=== PATIENT | male | born 1960 | race African-American/Black ===

== ENCOUNTER 2016-12-23 09:11 | Emergency (ER) | payer SELFPAY ==
[~2016-12-23] VITALS: Ht 182.9 cm; Wt 125.0 kg
[2016-12-23 09:15] VITALS: BP 135/77; PULSE 65; RESP 20; TEMP 98; O2SAT 99
--- NOTE | 2016-12-23 09:46 | PD ---
HPI Chief Complaint: Medication Refill Request Time Seen by Provider: 09:46 Travel History International Travel<30 days: No Contact w/Intl Traveler<30days: No Traveled to known affect area: No History of Present Illness HPI 56-year-old male presents to the emergency department requesting refill on his Lortab for chronic back pain that he's been experiencing for the last 3-4 years. Says his pain is midline and this is his normal back pain. Denies new or recent injury. Uses a cane for support and this is also normal for him. Denies encopresis, incontinence, saddle anesthesias. Denies IV drug use, cancer. Denies fever, vomiting, abdominal pain. Denies paresthesias, loss of sensation, decreased range of motion, decreased strength to bilateral lower extremities. He says he has pain that radiates down his left buttock and back of left leg and this is also unchanged. Takes Xarelto for atrial fibrillation. He has no other medical complaints. No known allergies. No other modifying factors or associated signs and symptoms. Allergies-Medications (Allergen,Severity, Reaction): Coded Allergies: No Known Allergies (Unverified , 12/23/16) Review of Systems Except as stated in HPI: all other systems reviewed are Neg Physical Exam Narrative GENERAL: Well-nourished, well-developed male patient, in no acute distress; afebrile, nontoxic-appearing SKIN: Warm and dry. HEAD: Atraumatic. Normocephalic. EYES: Pupils equal and round. No scleral icterus. No injection or drainage. ENT: Mucosa pink and moist. Airway patent. NECK: Trachea midline. CARDIOVASCULAR: Regular rate. RESPIRATORY: No accessory muscle use. GASTROINTESTINAL: Rounded. MUSCULOSKELETAL: Bilateral lower extremities supple and non-tense with 2+ pedal pulses and sensory intact; with full range of motion and 5/5 strength. 2 + DTRs bilaterally. Active dorsiflexion and extension of bilateral feet. Ambulatory in room with normal gait with assistance with a cane. Sitting up in bed at 90. No obvious deformities. No clubbing. No cyanosis. No edema. BACK: Midline point tenderness on palpation of the lumbar spine. Tenderness on palpation of bilateral lumbar paraspinal and iliosacral areas. No obvious deformities. NEUROLOGICAL: Awake and alert. Oriented 3. No obvious cranial nerve deficits. Motor grossly within normal limits. Normal speech. Moves all extremities. 5/5 strength to all extremities. Sensory intact. PSYCHIATRIC: Appropriate mood and affect; insight and judgment normal. Data Data Last Documented VS Vital Signs Date Time Temp Pulse Resp B/P Pulse Ox O2 Delivery O2 Flow Rate FiO2 12/23/16 09:15 98.0 65 20 135/77 99 Room Air MDM Medical Screen Exam Complete: Yes Emergency Medical Condition: No Differential Diagnosis Medication refill, narcotic seeking, medical clearance Narrative Course 56-year-old male requesting refill on his Lortab for chronic back pain. Denies new or recent injury. Denies IV drug use, cancer. Denies encopresis, incontinence, saddle anesthesias. Patient is ambulatory in the room with a normal gait with assistance with his cane. He does have midline point tenderness on palpation of the lumbar spine, and states that this is his normal back pain and is unchanged. I offered the patient a nonnarcotic and a muscle relaxer and he declined. Patient states he has an appointment with his primary care provider at beginning of January. Vital signs are stable and the patient is stable for outpatient follow-up and treatment. The patient has no urgent or emergent medical complaints. There is no emergent or urgent medical need at this time. I instructed the patient to follow up with their primary care provider. A medical screening exam was performed: At the time of evaluation the presenting medical condition was determined not to be of an emergent nature. The patient was given the option of receiving additional care, but declined. Patient was given options for additional community resources from which to obtain care. The Patient Has Been advised to seek medical attention for their presenting complaint. The patient has been advised to return to the ER at any time if an emergent condition develops. Primary Impression: Encounter for medical screening examination Condition: Stable Syeda Ghosh Dec 23, 2016 09:46
== END 2016-12-23 10:03 | disposition left against medical advice (07) ==
LOC: NEPK 09:11
DX: M79.605 Pain in left leg (principal); I48.91 Unspecified atrial fibrillation; Z79.01 Long term (current) use of anticoagulants
CPT/HCPCS: 99281

== ENCOUNTER 2017-03-30 19:54 | Emergency (ER) | payer OTHER ==
[~2017-03-30] VITALS: Ht 182.9 cm; Wt 125.0 kg
[2017-03-30 19:59] VITALS: BP 144/57; PULSE 107; RESP 16; TEMP 98; O2SAT 100
[2017-03-30] MEDS ORDERED: SODIUM CHLORIDE 0.9% FLUSH 10 ML FLUSH IVF PRN (21:30)
[2017-03-30] MEDS ORDERED: XARE20TA PO (22:04)
--- NOTE | 2017-03-30 22:05 | PD ---
HPI Chief Complaint: GI Complaint Time Seen by Provider: 21:29 Travel History International Travel<30 days: No Contact w/Intl Traveler<30days: No Traveled to known affect area: No History of Present Illness HPI 57 yo M with 1 week abdomen and chest pain sudden in onset. Today + dyspnea prompting ER visit. Modifying factors: none. Associated symptoms: decreased appetite. No fever. + Nausea. No vomiting. + Diarrhea x several episodes daily. + Coughing, non-productive. + Itchy sensation preceding coughing. Pt states, " It just feels sour." PFSH Past Medical History Hx Anticoagulant Therapy: Yes (XARELTO ) Cardiovascular Problems: Yes (HTN) Cerebrovascular Accident: Yes Past Surgical History Genitourinary Surgery: Yes (PROSTRATE REMOVED) Other Surgery: Yes Social History Alcohol Use: No Tobacco Use: No Substance Use: No Allergies-Medications (Allergen,Severity, Reaction): Coded Allergies: No Known Allergies (Unverified , 03/30/17) Reported Meds & Prescriptions Reported Meds & Active Scripts Active Reported Centrum Silver Men Tablet (Multivit-Min/FA/Lycopen/Lutein) 300 Mcg-600 Mcg-300 Mcg Tablet Cardizem CD 24 HR (Diltiazem CD 24 HR) 120 Mg Caper 120 Mg PO DAILY Metoprolol Tartrate 75 Mg Tab 75 Mg PO BID Digoxin 0.125 Mg Tab 0.125 Mg PO DAILY Zetia (Ezetimibe) 10 Mg Tab 10 Mg PO DAILY Hydrochlorothiazide 12.5 Mg Cap 12.5 Mg PO DAILY Zoloft (Sertraline HCl) 100 Mg Tab 100 Mg PO DAILY Alprazolam 1 Mg Tab 1 Mg PO Q12HR PRN Tramadol (Tramadol HCl) 50 Mg Tab 50 Mg PO Q6H PRN Metaxalone 800 Mg Tab 800 Mg PO DAILY Lortab (Hydrocodone-Acetaminophen) 5-325 Mg Tab 1 Tab PO Q4H PRN Xarelto (Rivaroxaban) 20 Mg Tab 20 Mg PO DAILY Review of Systems Except as stated in HPI: all other systems reviewed are Neg General / Constitutional: No: Fever Gastrointestinal: Positive: Nausea, Diarrhea, No: Vomiting, Abdominal Pain Physical Exam Narrative GENERAL: 57 yo M, WNWD, NAD SKIN: Warm and dry. HEAD: Atraumatic. Normocephalic. EYES: Pupils equal and round. No scleral icterus. No injection or drainage. ENT: No nasal bleeding or discharge. Mucous membranes pink and moist. NECK: Trachea midline. No JVD. CARDIOVASCULAR: Regular rate and rhythm. RESPIRATORY: No accessory muscle use. Clear to auscultation. Breath sounds equal bilaterally. GASTROINTESTINAL: Soft. TTP RUQ/epigastrium. MUSCULOSKELETAL: Extremities without clubbing, cyanosis, or edema. No obvious deformities. NEUROLOGICAL: Awake and alert. No obvious cranial nerve deficits. Motor grossly within normal limits. Five out of 5 muscle strength in the arms and legs. Normal speech. PSYCHIATRIC: Appropriate mood and affect; insight and judgment normal. Data Data Last Documented VS Vital Signs Date Time Temp Pulse Resp B/P (MAP) Pulse Ox O2 Delivery O2 Flow Rate FiO2 03/30/17 22:43 16 98 Room Air 03/30/17 19:59 98.0 107 VS reviewed Orders Orders Electrocardiogram (03/30/17 21:29) Complete Blood Count With Diff (03/30/17 21:29) Comprehensive Metabolic Panel (03/30/17 21:29) Magnesium (Mg) (03/30/17 21:29) Troponin I (03/30/17 21:29) Lipase (03/30/17 21:29) Iv Access Insert/Monitor (03/30/17 21:29) Oximetry (03/30/17 21:29) Sodium Chloride 0.9% Flush (Ns Flush) (03/30/17 21:30) Ct Abd/Pel W Iv Contrast(Rout) (03/30/17 22:05) Chest, Single Ap (03/30/17 ) Prothrombin Time / Inr (Pt) (03/30/17 22:17) Act Partial Throm Time (Ptt) (03/30/17 22:17) Iohexol 350 Inj (Omnipaque 350 Inj) (03/30/17 23:09) Ct Thorax/ Chest Wo Iv Contras (03/30/17 ) Ondansetron Inj (Zofran Inj) (03/31/17 00:30) Sodium Chlor 0.9% 1000 Ml Inj (Ns 1000 M (03/31/17 00:30) Morphine Inj (Morphine Inj) (03/31/17 00:30) Labs Laboratory Tests Test 03/30/17 21:50 White Blood Count 5.8 TH/MM3 Red Blood Count 5.02 MIL/MM3 Hemoglobin 15.7 GM/DL Hematocrit 46.1 % Mean Corpuscular Volume 91.8 FL Mean Corpuscular Hemoglobin 31.3 PG Mean Corpuscular Hemoglobin Concent 34.1 % Red Cell Distribution Width 13.5 % Platelet Count 254 TH/MM3 Mean Platelet Volume 9.5 FL Neutrophils (%) (Auto) 56.0 % Lymphocytes (%) (Auto) 31.0 % Monocytes (%) (Auto) 11.3 % Eosinophils (%) (Auto) 0.6 % Basophils (%) (Auto) 1.1 % Neutrophils # (Auto) 3.2 TH/MM3 Lymphocytes # (Auto) 1.8 TH/MM3 Monocytes # (Auto) 0.7 TH/MM3 Eosinophils # (Auto) 0.0 TH/MM3 Basophils # (Auto) 0.1 TH/MM3 CBC Comment DIFF FINAL Differential Comment Blood Urea Nitrogen 11 MG/DL Creatinine 0.89 MG/DL Random Glucose 103 MG/DL Total Protein 8.2 GM/DL Albumin 4.3 GM/DL Calcium Level 9.2 MG/DL Magnesium Level 2.2 MG/DL Alkaline Phosphatase 70 U/L Aspartate Amino Transf (AST/SGOT) 51 U/L Alanine Aminotransferase (ALT/SGPT) 34 U/L Total Bilirubin 0.9 MG/DL Sodium Level 136 MEQ/L Potassium Level 4.3 MEQ/L Chloride Level 101 MEQ/L Carbon Dioxide Level 26.7 MEQ/L Anion Gap 8 MEQ/L Estimat Glomerular Filtration Rate 108 ML/MIN Troponin I LESS THAN 0.02 NG/ML Lipase 190 U/L MDM Medical Decision Making Medical Screen Exam Complete: Yes Emergency Medical Condition: Yes Differential Diagnosis pna, hepatobiliary disease, coronary disease, gastritis Narrative Course Pt to be seen and evaluated in medical pod. Work up pending at time of dictation. Ventura Fiore MD Mar 30, 2017 22:05
[2017-03-30 22:12] LABS: AUTOMATED NEUTROPHIL # 3.2 TH/MM3 (1.8-7.7); BASOPHIL # 0.1 TH/MM3 (0-0.2); BASOPHIL % 1.1 % (0.0-2.0); EOSINOPHIL % 0.6 % (0.0-4.0); HEMATOCRIT 46.1 % (39.0-51.0); HEMO FLAGS DIFF FINAL; LYMPHOCYTE # 1.8 TH/MM3 (1.0-4.8); MEAN CELL VOLUME 91.8 FL (80.0-100.0); MEAN CORPUSCULAR HEMOGLOBIN 31.3 PG (27.0-34.0); MEAN CORPUSCULAR HGB CONC 34.1 % (32.0-36.0); MONO % 11.3 % (0.0-8.0); PLATELET COUNT 254 TH/MM3 (150-450); RED BLOOD COUNT 5.02 MIL/MM3 (4.50-5.90); RED CELL DISTRIBUTION WIDTH 13.5 % (11.6-17.2); WHITE BLOOD COUNT 5.8 TH/MM3 (4.0-11.0)
[2017-03-30] MEDS ORDERED: CARD120C4 PO (22:14)
[2017-03-30] MEDS ORDERED: ZOLO100T PO (22:14)
[2017-03-30] MEDS ORDERED: MULT1TAB64 (22:14)
[2017-03-30] MEDS ORDERED: HYDR-3533 PO (22:14)
[2017-03-30] MEDS ORDERED: TRAM50TA PO (22:14)
[2017-03-30] MEDS ORDERED: ALPR1TAB3 PO (22:14)
[2017-03-30] MEDS ORDERED: DIGO0.12 PO (22:14)
[2017-03-30] MEDS ORDERED: ZETI10TA5 PO (22:14)
[2017-03-30] MEDS ORDERED: HYDR12.57 PO (22:14)
[2017-03-30] MEDS ORDERED: METO-426 PO (22:14)
[2017-03-30] MEDS ORDERED: META1TAB19 PO (22:14)
[2017-03-30 22:30] LABS: ALT (GPT) 34 U/L (12-78)
[2017-03-30 22:33] LABS: ANION GAP 8 MEQ/L (5-15); AST (GOT) 51 U/L (15-37); BICARBONATE 26.7 MEQ/L (21.0-32.0); BLOOD UREA NITROGEN 11 MG/DL (7-18); CHLORIDE 101 MEQ/L (98-107); GLOMERULAR FILTRATION RATE 108 ML/MIN (>89); MAGNESIUM 2.2 MG/DL (1.5-2.5); POTASSIUM 4.3 MEQ/L (3.5-5.1); SODIUM (NA) 136 MEQ/L (136-145)
[2017-03-30 22:34] LABS: ALKALINE PHOSPHATASE 70 U/L (45-117); TOTAL BILIRUBIN ADULT 0.9 MG/DL (0.2-1.0)
[2017-03-30 22:43] VITALS: RESP 16; O2SAT 98
--- NOTE | 2017-03-30 22:49 | RADRPT ---
EXAM DATE/TIME: 03/30/2017 22:18 [facility] COMPARISON: No previous studies available for comparison. INDICATIONS : Chest pain and shortness of breath, nausea, lightheaded and dizziness. MEDICAL HISTORY : None. SURGICAL HISTORY : None. ENCOUNTER: Initial ACUITY: 1 day PAIN SCORE: 7/10 LOCATION: Bilateral chest FINDINGS: There is a paraspinous density on the right side just below the level of the aortic arch. Cannot excl ude adenopathy. Further evaluation with chest CT recommended. CONCLUSION: 1. Paraspinous density on the right. Further evaluation with chest CT recommended. Per Avery MD on March 30, 2017 at 22:46 Board Certified Radiologist. This report was verified electronically.
[2017-03-30] MEDS ORDERED: IOHEXOL 350 MG/ML 10 ML VIAL (for RAD DIAG) IVCONTRAST ONE (23:09)
--- NOTE | 2017-03-30 23:19 | RADRPT ---
EXAM DATE/TIME: 03/30/2017 23:02 [facility] COMPARISON: No previous studies available for comparison. INDICATIONS : Abdominal pain with nausea and vomiting. IV CONTRAST: 100 cc Omnipaque 350 (iohexol) IV ORAL CONTRAST: No oral contrast ingested. RADIATION DOSE: 26.25 CTDIvol (mGy) ; Patient body habitus MEDICAL HISTORY : Hypertension. SURGICAL HISTORY : Prostatectomy. ENCOUNTER: Initial ACUITY: 1 day PAIN SCALE: 8/10 LOCATION: abdomen TECHNIQUE: Volumetric scanning of the abdomen and pelvis was performed. Using automated exposure control and ad justment of the mA and/or kV according to patient size, radiation dose was kept as low as reasonably achievable to obtain optimal diagnostic quality images. DICOM format image data is available electro nically for review and comparison. FINDINGS: LOWER LUNGS: The visualized lower lungs are clear. LIVER: Homogeneous density without lesion. There is no dilation of the biliary tree. No calcified gallston es. SPLEEN: Normal size without lesion. PANCREAS: Within normal limits. KIDNEYS: Normal in size and shape. There is no mass, stone or hydronephrosis. ADRENAL GLANDS: Within normal limits. VASCULAR: There is no aortic aneurysm. BOWEL/MESENTERY: The stomach, small bowel, and colon demonstrate no acute abnormality. There is no free intraperitone al air or fluid. ABDOMINAL WALL: Within normal limits. RETROPERITONEUM: There is no lymphadenopathy. BLADDER: No wall thickening or mass. REPRODUCTIVE: Within normal limits. INGUINAL: There is no lymphadenopathy or hernia. MUSCULOSKELETAL: Within normal limits for patient age. CONCLUSION: No acute disease. Blade Worthy Jr., MD on March 30, 2017 at 23:15 Board Certified Radiologist. This report was verified electronically.
--- NOTE | 2017-03-31 00:17 | RADRPT ---
EXAM DATE/TIME: 03/30/2017 23:46 [facility] COMPARISON: CHEST SINGLE AP, March 30, 2017, 22:18. INDICATIONS : Abnormal chest x-ray. RADIATION DOSE: 9.83 CTDIvol (mGy) MEDICAL HISTORY : Hypertension. SURGICAL HISTORY : Prostatectomy. ENCOUNTER: Initial ACUITY: 1 day PAIN SCALE: 10/10 LOCATION: chest TECHNIQUE: Volumetric scanning of the chest was performed. Using automated exposure control and adjustment of t he mA and/or kV according to patient size, radiation dose was kept as low as reasonably achievable to obtain optimal diagnostic quality images. DICOM format image data is available electronically for r eview and comparison. Follow-up recommendations for detected pulmonary nodules are based at a minimum on nodule size and pa tient risk factors according to Fleischner Society Guidelines. FINDINGS: LUNGS: There is no consolidation or pneumothorax. No concerning pulmonary nodule is visualized. PLEURAE: There is no pleural thickening or pleural effusion. MEDIASTINUM: The heart and great vessels demonstrate no acute abnormality. There is no mediastinal or hilar lymph adenopathy. AXILLAE: Within normal limits. No lymphadenopathy. MUSCULOSKELETAL: Within normal limits for patient age. MISCELLANEOUS: A degenerative spine. CONCLUSION: 1. No acute intrathoracic abnormality. In particular, no paraspinal mass. 2. The density seen on recent chest x-ray is felt to relate to bridging osteophytes. Blade Worthy Jr., MD on March 31, 2017 at 0:13 Board Certified Radiologist. This report was verified electronically.
[2017-03-31] MEDS ORDERED: SODIUM CHLOR 0.9% 1000 ML INJ 1,000 ML IV ONE (00:30)
[2017-03-31] MEDS ORDERED: MORPHINE SULFATE 4 MG/ML INJ IV PUSH ONE (00:30)
[2017-03-31] MEDS ORDERED: ONDANSETRON HCL 4 MG/2 ML VIAL IV PUSH ONE (00:30)
--- NOTE | 2017-03-31 00:34 | PD ---
Physical Exam Date Seen by Provider: Mar 31, 2017 Time Seen by Provider: 00:32 Narrative The patient is a 57-year-old [place] male was initially evaluated by the previous physician, Dr. Fiore. Please refer to the initial history, physical, diagnostic evaluation, and treatment modality plan. Data Data Last Documented VS Vital Signs Date Time Temp Pulse Resp B/P (MAP) Pulse Ox O2 Delivery O2 Flow Rate FiO2 03/30/17 22:43 16 98 Room Air 03/30/17 19:59 98.0 107 Orders Orders Electrocardiogram (03/30/17 21:29) Complete Blood Count With Diff (03/30/17 21:29) Comprehensive Metabolic Panel (03/30/17 21:29) Magnesium (Mg) (03/30/17:29) Troponin I (03/30/17:) Lipase (03/30/17 21:29) Iv Access Insert/Monitor (03/30/17:29) Oximetry (03/30/17 21:29) Sodium Chloride 0.9% Flush (Ns Flush) (03/30/17 21:30) Ct Abd/Pel W Iv Contrast(Rout) (03/30/17 22:05) Chest, Single Ap (03/30/17 ) Prothrombin Time / Inr (Pt) (03/30/17:17) Act Partial Throm Time (Ptt) (03/30/17:17) Iohexol 350 Inj (Omnipaque 350 Inj) (03/30/17 23:09) Ct Thorax/ Chest Wo Iv Contras (03/30/17 ) Ondansetron Inj (Zofran Inj) (03/31/17 00:30) Sodium Chlor 0.9% 1000 Ml Inj (Ns 1000 M (03/31/17 00:30) Morphine Inj (Morphine Inj) (03/31/17 00:30) Labs Laboratory Tests Test 03/30/17 21:50 White Blood Count 5.8 TH/MM3 Red Blood Count 5.02 MIL/MM3 Hemoglobin 15.7 GM/DL Hematocrit 46.1 % Mean Corpuscular Volume 91.8 FL Mean Corpuscular Hemoglobin 31.3 PG Mean Corpuscular Hemoglobin Concent 34.1 % Red Cell Distribution Width 13.5 % Platelet Count 254 TH/MM3 Mean Platelet Volume 9.5 FL Neutrophils (%) (Auto) 56.0 % Lymphocytes (%) (Auto) 31.0 % Monocytes (%) (Auto) 11.3 % Eosinophils (%) (Auto) 0.6 % Basophils (%) (Auto) 1.1 % Neutrophils # (Auto) 3.2 TH/MM3 Lymphocytes # (Auto) 1.8 TH/MM3 Monocytes # (Auto) 0.7 TH/MM3 Eosinophils # (Auto) 0.0 TH/MM3 Basophils # (Auto) 0.1 TH/MM3 CBC Comment DIFF FINAL Differential Comment Blood Urea Nitrogen 11 MG/DL Creatinine 0.89 MG/DL Random Glucose 103 MG/DL Total Protein 8.2 GM/DL Albumin 4.3 GM/DL Calcium Level 9.2 MG/DL Magnesium Level 2.2 MG/DL Alkaline Phosphatase 70 U/L Aspartate Amino Transf (AST/SGOT) 51 U/L Alanine Aminotransferase (ALT/SGPT) 34 U/L Total Bilirubin 0.9 MG/DL Sodium Level 136 MEQ/L Potassium Level 4.3 MEQ/L Chloride Level 101 MEQ/L Carbon Dioxide Level 26.7 MEQ/L Anion Gap 8 MEQ/L Estimat Glomerular Filtration Rate 108 ML/MIN Troponin I LESS THAN 0.02 NG/ML Lipase 190 U/L [facility] Medical Record Reviewed: Yes Supervised Visit with CHELLY: No Interpretation(s) Laboratory Tests Test 03/30/17 21:50 White Blood Count 5.8 TH/MM3 Red Blood Count 5.02 MIL/MM3 Hemoglobin 15.7 GM/DL Hematocrit 46.1 % Mean Corpuscular Volume 91.8 FL Mean Corpuscular Hemoglobin 31.3 PG Mean Corpuscular Hemoglobin Concent 34.1 % Red Cell Distribution Width 13.5 % Platelet Count 254 TH/MM3 Mean Platelet Volume 9.5 FL Neutrophils (%) (Auto) 56.0 % Lymphocytes (%) (Auto) 31.0 % Monocytes (%) (Auto) 11.3 % Eosinophils (%) (Auto) 0.6 % Basophils (%) (Auto) 1.1 % Neutrophils # (Auto) 3.2 TH/MM3 Lymphocytes # (Auto) 1.8 TH/MM3 Monocytes # (Auto) 0.7 TH/MM3 Eosinophils # (Auto) 0.0 TH/MM3 Basophils # (Auto) 0.1 TH/MM3 CBC Comment DIFF FINAL Differential Comment Blood Urea Nitrogen 11 MG/DL Creatinine 0.89 MG/DL Random Glucose 103 MG/DL Total Protein 8.2 GM/DL Albumin 4.3 GM/DL Calcium Level 9.2 MG/DL Magnesium Level 2.2 MG/DL Alkaline Phosphatase 70 U/L Aspartate Amino Transf (AST/SGOT) 51 U/L Alanine Aminotransferase (ALT/SGPT) 34 U/L Total Bilirubin 0.9 MG/DL Sodium Level 136 MEQ/L Potassium Level 4.3 MEQ/L Chloride Level 101 MEQ/L Carbon Dioxide Level 26.7 MEQ/L Anion Gap 8 MEQ/L Estimat Glomerular Filtration Rate 108 ML/MIN Troponin I LESS THAN 0.02 NG/ML Lipase 190 U/L Last Impressions Abdomen/Pelvis CT 03/30/172204 Signed Impressions: Service Date/Time: Thursday, March 30, 2017 23:02 - CONCLUSION: No acute disease. Blade Worthy Jr., MD Chest X-Ray 03/30/17 0000 Signed Impressions: Service Date/Time: Thursday, March 30, 2017 22:18 - CONCLUSION: 1. Paraspinous density on the right. Further evaluation with chest CT recommended. Per Avery MD Chest CT 03/30/17 0000 Signed Impressions: Service Date/Time: Thursday, March 30, 2017 23:46 - CONCLUSION: 1. No acute intrathoracic abnormality. In particular, no paraspinal mass. 2. The density seen on recent chest x-ray is felt to relate to bridging osteophytes. Blade Worthy Jr., MD Differential Diagnosis Differential diagnosis includes food poisoning, gastroenteritis, colitis, diverticulitis, gastroparesis, partial small bowel obstruction, viral illness, dehydration, electrolyte abnormality. Narrative Course The patient was initially evaluated by the previous physician, Dr. Fiore. Please refer to the initial history, physical, diagnostic evaluation, and treatment modality plan. The patient had a CT of the abdomen and pelvis, chest x-ray, which revealed a shovel mass in the chest, therefore, CT the chest was performed. CT of the chest and abdomen/pelvis are otherwise unremarkable. The patient was evaluated at 12:30 AM, continue to have nausea and vomiting. Patient states he had diarrhea that started one week ago, is had intermittent generalized abdominal pain and cramping, now has nausea and vomiting. He denies any sick contacts at home and denies any recent international travel in the last 30 days. Therefore, the patient was administer morphine, Zofran, and IV fluids. Patient's labs were unremarkable, no evidence of pancreatitis or hepatitis. The patient was reevaluated at 1:15 AM, his nausea and vomiting that resolved, his symptoms had significantly improved. The patient be discharged home on Zantac and Zofran. He will be provided a copy of his CT results and lab results at discharge. Diagnosis Primary Impression: Nausea vomiting and diarrhea Patient Instructions: General Instructions Additional Instruction: Medications as directed. Please provide a patient a copy of his CT results and lab results at discharge. Follow-up with your primary physician. Return if symptoms worsen or progress. Med/Other Pt SpecificInfo: Prescription(s) given Scripts Ondansetron Odt (Zofran Odt) 4 Mg Tab 4 MG SL Q6HR Y for Nausea/Vomiting, #10 TAB 0 Refills Prov: Rich James MD 03/31/17 Ranitidine (Zantac 150 Maximum Strength) 150 Mg Tab 150 MG PO BID for 14 Days, #28 TAB Prov: Rich James MD 03/31/17 Disposition: 01 DISCHARGE HOME Condition: Stable Rich James MD Mar 31, 2017 00:34
[2017-03-31] MEDS ORDERED: ZOFR4TAB3 SL (01:41)
[2017-03-31] MEDS ORDERED: ZANTTAB PO (01:41)
[2017-03-31 02:11] LABS: INTERNATIONAL NORMALIZED RATIO 1.1 RATIO; PROTHROMBIN TIME - PATIENT 12.5 SEC (9.8-11.6)
--- NOTE | 2017-03-31 05:03 | EKG ---
Date Performed: 03/30/2017 Time Performed: 21:31:09 PTAGE: 57 years EKG: ATRIAL FIBRILLATION MODERATE INTRAVENTRICULAR CONDUCTION DELAY MODERATE T-WAVE ABNORMALITY, CONSIDER LATERAL ISCHEMIA MODERATE T-WAVE ABNORMALITY, CONSIDER INFERIOR ISCHEMIA ABNORMAL ECG NO PREVIOUS TRACING DOCTOR: Andrew Mullen Interpretating Date/Time 03/31/2017 05:02:32
== END 2017-03-31 02:35 | disposition home or self-care (01) ==
LOC: NEPE 19:54
DX: I10 Essential (primary) hypertension (principal); R19.7 Diarrhea, unspecified; R11.2 Nausea with vomiting, unspecified; R94.31 Abnormal electrocardiogram [ECG] [EKG]
CPT/HCPCS: 71010; 71250; 74177; 80053; 83690; 83735; 84484; 85025; 85610; 85730; 93005; 96374; 96375; 99285; J2270; J2405; J7030; Q9967